=== PATIENT | male | born 2000 | race Caucasian/White ===

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

== ENCOUNTER → 2020-01-16 | Outpatient (CLI) | payer OTHER, SELFPAY ==
[2020-01-16 11:23] VITALS: BMI 20.9
== END | disposition home or self-care (01) ==
LOC: LABSPEC 14:49
PROVIDERS: PCP Nurse Practitioner Gerontology; Visit Provider Physician Assistant Surgical
DX: U07.1 COVID-19 (principal)
CPT/HCPCS: 87635; U0003

== ENCOUNTER → 2022-05-03 | Outpatient (CLI) | payer OTHER, SELFPAY ==
--- NOTE | 2022-05-03 12:40 | MRI_ITS ---
STUDY: MRI BRAIN WITH AND WITHOUT CONTRAST REASON FOR EXAM: Male, 21 years old. APHASIA TECHNIQUE: Standardized multiplanar fat and water weighted pulse sequences were obtained. IV Yes YES was administered for the contrast portion of the examination. COMPARISON: None. FINDINGS: Normal size of the ventricles and extra-axial spaces for the patient''s age. Normal white matter tracts of the supratentorial brain. There is no evidence for recent intracranial ischemia or other cause of cytotoxic edema on diffusion weighted imaging (DWI). There are no demyelinating plagues of the supratentorial brain, brainstem or cerebellum. There are no findings suspicious for multiple sclerosis (MS). Normal bilateral frontal poles, and orbital frontal and gyrus recti of the frontal lobes. Normal bilateral temporal tips of the temporal lobes. There are no white matter shear injuries (diffuse axonal injuries). There are no parenchymal hemorrhages or hematomas. There are no findings to suggest prior closed head parenchymal injury of the brain. No hydrocephalus or midline shift or herniation is present. There are no demonstrated focal brain parenchymal lesions or abnormally enhancing lesions of the brain. There is no abnormal thickening or enhancement of meninges or dura. No skull lesions are seen. Normal bilateral basal ganglia. Normal thalami. There is no extra-axial fluid accumulation. Normal flow voids within the major intracranial circulation suggesting patency by spin echo criteria. Normal venous enhancement. There is no enhancing intra-axial or extra-axial abnormality. Normal sella turcica, pituitary gland, infundibular stalk, optic chiasm and hypothalamus. Normal tectal plate and pineal gland. Normal midbrain, ophelia and medulla. Normal cerebellum. Normal basal cisterns. Normal bilateral temporal bones. Normal bilateral internal auditory canals. No demonstrated orbital abnormality, within the constraints of a routine brain study. Normal visualized paranasal sinuses. Normal calvarium and skull base. Normal visualized soft tissue structures. Normal visualized upper cervical spine. MRI/Brain W/WO Contrast IMPRESSION: 1. Normal unenhanced and enhanced MRI of the brain. Electronically Signed: Shar Laureano MD at 11:23 EDT ,
== END | disposition home or self-care (01) ==
LOC: MRI 12:36
PROVIDERS: Referring Provider Psychiatry & Neurology Neurology; Visit Provider Psychiatry & Neurology Neurology
DX: R47.01 Aphasia (principal)
CPT/HCPCS: 70553; A9575

== ENCOUNTER → 2022-08-17 | Outpatient (CLI) | payer OTHER, SELFPAY ==
[2022-08-17 16:01] LABS: Vitamin B12 371 pg/mL (211-911)
[2022-08-17 16:33] LABS: T4 Free Direct 0.96 ng/dL (0.76-1.46)
== END | disposition home or self-care (01) ==
PROVIDERS: Referring Provider Physician Assistant; Visit Provider Physician Assistant
DX: R41.3 Other amnesia (principal)
CPT/HCPCS: 36415; 82607; 82746; 84439; 84443

== ENCOUNTER → 2022-08-21 | Outpatient (CLI) | payer OTHER, SELFPAY ==
[2022-09-12 13:50] LABS: Arsenic (Inorganic), Urine < 10.0 ug/L (.); Arsenic, Urine 24 H 13 ug/24 hr (0-50); Arsenic:Creatinine Ratio Urine 10 ug/g creat (.); Creatinine, Urine 1.14 g/L (0.30-3.00)
[2022-09-12 14:03] LABS: ARSENIC (TOTAL), URINE 11 ug/L (0-9)
== END | disposition home or self-care (01) ==
PROVIDERS: Referring Provider Physician Assistant; Visit Provider Physician Assistant
DX: R41.3 Other amnesia (principal)
CPT/HCPCS: 81050; 82175; 82570; 83655; 83825

== ENCOUNTER → 2022-12-06 | Outpatient (CLI) | payer OTHER, SELFPAY ==
--- NOTE | 2022-12-06 13:46 | NEURO ---
NCS and/or EMG Patient Report Ordering Doctor: Manish Murphy DATE OF SERVICE: 12/06/22 Miki is for electrodiagnostic testing of the lower limbs. Reports numbness and tingling in the left great toe and the fifth toe bilaterally. Symptoms been present for about 5 months. Electrodiagnostic findings: Right tibial motor nerve demonstrates normal distal latency, amplitude and conduction velocity. Right peroneal motor nerve demonstrates normal distal latency and amplitude with a nearly 30% drop in conduction across the fibular head. Left peroneal motor nerve demonstrates normal distal latency and amplitude with an approximately 30% drop in conduction across the fibular head. Left tibial motor response is within normal limits. Peroneal and tibial F?waves are normal. Borderline prolonged H reflex bilaterally. Mildly prolonged sural latency bilaterally. Normal superficial peroneal and plantar responses. Needle EMG testing was performed the lower limbs. All muscles tested showed no evidence of denervation with normal motor unit action potentials. Electrodiagnostic impression: This is an abnormal study in the lower limbs 1. 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 There is evidence of mild to moderate conduction block across the fibular head bilaterally. There is no evidence of axonal loss. 2. 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 This does not appear to be of any clinical consequence. Multi Select Codes Neurology Neurology Interp Codes: 17398-48 Musc test done w/n test comp (interp) (2) and 91857-74 Nrv cndj test 11-12 studies (interp)
== END | disposition home or self-care (01) ==
LOC: PSN 12:09
PROVIDERS: PCP Nurse Practitioner Family; Referring Provider Podiatrist; Visit Provider Podiatrist
DX: G60.8 Other hereditary and idiopathic neuropathies (principal); G63 Polyneuropathy in diseases classified elsewhere
CPT/HCPCS: 95886

== ENCOUNTER 2023-08-30 13:01 | Emergency (ER) | payer BC, SELFPAY ==
[2023-08-30 13:03] VITALS: BP 114/81; PULSE 84; RESP 16; TEMP 36; O2SAT 100; BMI 21.7
--- NOTE | 2023-08-30 13:38 | CT_ITS ---
STUDY: CT BRAIN WITHOUT CONTRAST REASON FOR EXAM: Male, 23 years old. Severe headaches. Nausea and vomiting. History of migraines. RADIATION DOSAGE (If Supplied By Facility): CTDIvol = ( 44.99 ) mGy, DLP = ( 829.85 ) mGycm TECHNIQUE: Transaxial CT imaging of the brain was performed without administration of intravenous contrast material. Individualized dose optimization techniques were used for this CT. COMPARISON: No relevant priors. FINDINGS: Normal soft tissue structures. Normal calvarium. Normal size ventricles and extra-axial spaces for the patient''s age. Normal white matter tracts of the cerebral hemispheres. Normal basal ganglia and thalami. Normal brainstem. Normal cerebellum. There is no intracranial hemorrhage. There are no findings of an acute ischemic infarction. Normal visualized paranasal sinuses. CT/Brain/Head without Contrast IMPRESSION: Normal unenhanced CT scan of the brain. Electronically Signed: Luis Alfredo Mayen MD at 14:36 EDT ,
[2023-08-30 14:03] LABS: Absolute Neutrophil Count 7.3 X10^3/uL (2.0-7.7); Basophil# 0.03 X10^3/uL; Basophil% 0.3 % (0-1); Eosinophil# 0.05 X10^3/uL; Eosinophils% 0.6 % (0-5); Hematocrit 45.8 % (40-54); Hemoglobin 16.1 g/dL (13.0-16.5); Lymphocyte % 9.3 % (19-41); Mean Corp Hgb Conc 35.2 g/dL (32-36); Mean Corpuscular Hgb 29.5 pg (27.0-32.0); Mean Platelet Vol. 11.5 fl (6.2-12.0); Monocyte# 0.37 X10^3/uL; Monocyte% 4.3 % (0-10); NRBC Flagged by Analyzer 0 % (0-5); Neutrophil % 84.9 % (47-70); Platelet Count 151 K/mm3 (150-450); RBC Distribution Width CV 11.9 % (11.6-14.6); RBC Distribution Width SD 35.8 fl (35.1-43.9); Red Blood Count 5.45 M/mm3 (4.6-6.2); White Blood Count 8.6 K/mm3 (4.4-11.0)
[2023-08-30] MEDS: 0.9% Normal Saline (1000mL) 1,000 ML 999 ML IV (14:16)
[2023-08-30] MEDS: DiphenhydrAMINE 50 MG/ML Syringe 25 MG IV (14:18)
[2023-08-30] MEDS: proCHLORPERazine 10 MG/2 ML Vial IV (14:19)
[2023-08-30 14:21] LABS: ALB/GLOB Ratio 1.8 RATIO (0.9-2.4); AST(SGOT) 15 U/L (15-37); Alanine Aminotransfer ALT/SGPT 33 U/L (16-61); Albumin, Serum 4.3 g/dL (3.2-5.0); Alkaline Phosphatase 60 U/L (45-117); Anion Gap 5 (5-15); BUN 16 mg/dL (7-18); BUN/Creat Ratio 17.8 RATIO (10-20); Chloride 105 mmol/L (98-107); EST Glomerular Filtration Rate 110 mL/min (>60); Est Glom Filt Rate - Afr Amer 133 mL/min (>60); Estimated Creatinine Clearance 137.63 ml/min; Globulin 2.4 g/dL (2.2-4.2); Glucose 116 mg/dL (74-106); Lipase 21 U/L (13-75); Potassium 3.9 mmol/L (3.5-5.1); Protein, Total 6.7 g/dL (6.4-8.2); Sodium Level 140 mmol/L (136-145)
--- NOTE | 2023-08-30 14:36 | EX.ED.DYSGE1 ---
HPI History of Present Illness Chief Complaint: Nausea/Vomiting Informant: patient Onset/Context/Timing Onset: Today Context: Gradual Onset Timing: Continuous Quality: Dull, squeezing Location: Right periorbital area Worsened by: Nothing Relieved by: Nothing Narrative Narrative: Patient presents with right periorbital pain that began today. Patient states it began when he woke up today. Patient is gradually getting worse. Patient describes it as dull and squeezing. Patient states he has been having some nausea and vomiting today as well. Patient states he is vomiting up stomach contents. Patient denies any hematemesis or coffee-ground emesis. Patient denies any diarrhea, melena, or hematochezia. Patient has abdominal pain. Patient denies any fevers or chills. Patient states his vision in his right eye is somewhat blurry. Patient denies any trauma to his eye. Patient denies any loss of vision. [facility] Medical History (Updated 08/30/23 @ 16:[address] Chema Olson DO) Psoriasis Impacted cerumen, left ear Scabies Home Medications ?Medication ?Instructions ?Recorded ?Last Taken ?Type NK 01/16/20 Unknown History Allergy/AdvReac Type Severity Reaction Status Date / Time No Known Allergies Allergy Verified 08/30/23 13:03 Surgical History no surgical history no surgical history Social History Smoking Status: Never smoker ROS ROS ED Constitutional Constitutional ED: Denies chills or fever(s) Eyes Eyes: Reports blurry vision right; Denies change in vision ENT ENT ED: Denies rhinorrhea or sore throat Cardiovascular Cardiovascular: Denies chest pain or palpitations Respiratory/Chest Respiratory/Chest: Denies cough or dyspnea Gastrointestinal Gastrointestinal: Reports nausea and vomiting; Denies abdominal pain, diarrhea or melena Genitourinary Genitourinary ED: Denies dysuria or hematuria Musculoskeletal Musculoskeletal: Denies back pain or neck pain Integumentary Reports rash; Denies abscess Neurologic Neurologic: Reports headache(s); Denies weakness Allergic/Immunologic Allergic/Immunologic ED: Denies mouth swelling or urticaria EXAM Physical Exam Const Vital Signs: 08/30/23 13:03 Temperature 96.8 F L Temperature Source Temporal Pulse Rate 84 Respiratory Rate 16 Blood Pressure 114/81 H Blood Pressure Mean 92 Pulse Ox 100 Oxygen Delivery Method Room Air Positive well nourished and well developed General Appearance ED: well developed and NAD HEENT Reports moist mucous membranes Eyes PERRL and EOMs intact bilaterally Eyes Narrative: Funduscopic examination was benign. There is no papilledema. There is no retinal hemorrhage noted. There is no tenderness over the temporal artery. Neck supple and no JVD Resp normal respiratory effort and clear to auscultation bilaterally Cardio regular rate and regular rhythm GI non-tender and non-distended Palpation: soft Neuro oriented x3, CN's II-XII intact bilaterally and no sensory deficits noted Sensorium / Orientation: alert Motor Exam: strength 5/5 throughout MDM MDM MDM Narrative Medical decision making narrative: Differential diagnosis includes migraine headache, cluster headache, intracranial bleeding, intracranial mass gastroenteritis, viral illness, electrolyte abnormality, dehydration, pancreatitis, and dehydration. CT scan of the brain will be obtained to assess for intracranial bleeding and mass. CBC will be obtained to assess for leukocytosis and anemia. Comprehensive metabolic profile will be obtained to assess for hepatic function, renal function, and electrolyte abnormality. Lipase will be obtained to assess for pancreatitis. Lab Data Attestation: I reviewed the patient's lab results. Lab results narrative: CBC was reviewed and was within normal limits. Comprehensive metabolic profile was reviewed and was within normal limits. Lipase was reviewed and was normal. Labs: Laboratory Results - last 24 hr 08/30/23 13:50 WBC 8.6 RBC 5.45 Hgb 16.1 Hct 45.8 MCV 84.0 MCH 29.5 MCHC 35.2 RDW Std Deviation 35.8 RDW Coeff of Edwin 11.9 Plt Count 151 MPV 11.5 Immature Gran % (Auto) 0.600 Neut % (Auto) 84.9 H Lymph % (Auto) 9.3 L [place] % (Auto) 4.3 Eos % (Auto) 0.6 Baso % (Auto) 0.3 Absolute Neuts (auto) 7.3 Absolute Lymphs (auto) 0.80 L Nucleated RBC % 0 Sodium 140 Potassium 3.9 Chloride 105 Carbon Dioxide 30.0 Anion Gap 5 BUN 16 Creatinine 0.90 Estim Creat Clear Calc 137.63 Est GFR (MDRD) Af Amer 133 Est GFR (MDRD) Non-Af 110 BUN/Creatinine Ratio 17.8 Glucose 116 H Calcium 9.0 Total Bilirubin 0.60 AST 15 ALT 33 Alkaline Phosphatase 60 Total Protein 6.7 Albumin 4.3 Globulin 2.4 Albumin/Globulin Ratio 1.8 Lipase 21 Radiography Diagnostic Testing: CT scan of the brain was obtained. There is no acute intracranial abnormality. This was interpreted by the radiologist and was also independently reviewed by myself. Treatment and Re-Evaluation :: Patient was given IV fluids, Compazine, and Benadryl. Patient was feeling better on reevaluation. Patient was advised of his findings. Patient was instructed to start with a bland diet and advance as tolerated. Patient was instructed to follow-up with his primary care physician in 5 to 7 days for reevaluation. Patient understood and was agreeable with the plan. All questions were answered. Discharge Plan Triage Chief Complaint: Nausea/Vomiting Other Complaint: Eye Problem ED Provider: Chema Olson Dx/Rx/DC Orders Clinical Impression: Headache, Nausea and vomiting Instructions: ED, Migraine (Classical), ED Vomiting (Adult) Prescriptions: No Action NK Primary Care Provider: Maki Delgado Referrals: Maki Delgado, OTHER SPORTS COACH OR INSTRUCTOR-C [Primary Care Provider] - 5-7 Days Print Language: Guatemalan Disposition Disposition: Home, Self Care
[2023-08-30 16:26] VITALS: BP 114/81; PULSE 84; RESP 16; TEMP 36; O2SAT 100
== END 2023-08-30 16:27 | disposition home or self-care (01) ==
PROVIDERS: Emergency Provider Emergency Medicine; PCP Nurse Practitioner Family; Visit Provider Emergency Medicine
DX: R11.2 Nausea with vomiting, unspecified (principal); R51.9 Headache, unspecified; R10.9 Unspecified abdominal pain
CPT/HCPCS: 70450; 80053; 83690; 85025; 96361; 96374; 96375; 99285; J7030